=== PATIENT | female | born 1985 | race American Indian/Alaskan Native ===

== ENCOUNTER 2024-10-15 22:01 | Emergency (ER) | payer MEDICAID, SELFPAY ==
[2024-10-15 22:02] VITALS: BMI 32.0
--- NOTE | 2024-10-15 22:14 | PC.NURSE ---
not able to get an initial set of vitals due to the pt behavior.
--- NOTE | 2024-10-15 22:50 | PD.EDRME ---
Rapid Medical Screening Exam RME Arrival date/time: 10/15/24 22:01 39-year-old disheveled female with friend at bedside presents emergency department complaining of lacerations to right arm and lower lip from dog bite. Chief Complaint: Animal Bite Time Seen by Provider: 10/15/24 22:30 Vital signs: Vital Signs Temperature 97.3 F 10/15/24 22:56 Pulse Rate 98 10/15/24 22:56 Respiratory Rate 22 H 10/15/24 22:56 Blood Pressure 152/90 H 10/15/24 22:56 Pulse Oximetry (%) 99 10/15/24 22:56 Oxygen Delivery Method Room Air 10/15/24 22:56 Vital signs reviewed by provider: Yes
[2024-10-15 22:56] VITALS: BP 152/90; PULSE 98; RESP 22; TEMP 36.3; O2SAT 99
[2024-10-15] MEDS: LORazepam 2 MG/ML VIAL IM (23:21)
[2024-10-15] MEDS: LIDOCAINE HCL 1% 20 ML VIAL INFL (23:22)
--- NOTE | 2024-10-16 00:18 | EDNOTE_ITS ---
ED Animal Bite RME/HPI General Chief Complaint: Animal Bite Stated Complaint: ATTACKED BY DOG/INTOXICATED Time Seen by Provider: 10/15/24 22:30 Arrival date/time: 10/15/24 22:01 RME / HPI RME / HPI narrative: 10/15/24 22:01 39-year-old disheveled female with friend at bedside presents emergency department complaining of lacerations to right arm and lower lip from dog bite. DR. SCHULZ MAIN ED EVALUATION: 39-year-old female patient brought in by private vehicle for alcohol intoxication and dog bite, lower lip and right arm. Per patient's daughter at bedside the patient went to her boyfriend's house intoxicated. Her boyfriend was not at home. She broke into the property unannounced and his dogs bit her. Related Data Home Medications ?Medication ?Instructions ?Recorded ?Confirmed Unobtainable 10/16/24 10/16/24 Allergies Allergy/AdvReac Type Severity Reaction Status Date / Time No Known Allergies Allergy Verified 05/19/21 22:19 Review of Systems Review of Systems Systems Reviewed: All systems reviewed, normal except as documented Narrative Review of Systems: GEN: No fever, no chills, no weight loss EYES: No discharge, no visual changes, no pain HEENT: No ear pain, no congestion, no sore throat PULM: No shortness of breath, no cough, no congestion CV: No chest pain, no dyspnea on exertion, no palpitations GI: No nausea, no vomiting, no diarrhea, no pain, no constipation : No frequency, no urgency and no dysuria MUSC/SKEL: No joint pain, no back pain SKIN: No rash. + lower lip and right arm bite from dog (see HPI) PSYCH: No hallucinations, no depression HEME/LYMPH: No easy bleeding or bruising tendencies NEURO: No weakness, no headache Past Medical History Social History SMOKING STATUS: Never smoker SUBSTANCE USE: does not use ALCOHOL: Never ED Exam Narrative Physical exam: GENERAL APPEARANCE: alert and oriented x 4, well-developed, well-nourished, no acute distress VITALS: All vitals were reviewed and the pulse ox is 97% on room air, which is normal according to my interpretation. HEENT: Normocephalic, atraumatic; pupils equal, round, reactive to light; EOMI; mucous membranes pink, moist; oropharynx clear NECK: Supple LUNGS: CTABL; no wheezes, no rales, no rhonchi HEART: Regular rate, regular rhythm; normal S1, S2; no murmurs ABDOMEN: non distended; normal BS; soft, no tenderness, no guarding, no rebound; no masses, no organomegaly, no hernia BACK: no CVA tenderness EXTREMITIES: atraumatic; no edema NEUROLOGIC: awake; alert and oriented x4; cranial nerves II-XII grossly intact; no focal sensory or motor deficits PSYCHIATRIC: appropriate mood and affect SKIN: warm, dry, normal color; no rashes Course Quality Measures none Orders Category Date Time Status Set Up Suture Tray STAT Care 10/15/24 23:06 Completed Wound Care [Wound Care] NOW Care 10/15/24 23:06 Completed Alcohol, Blood Medical Stat Lab 10/15/24 22:48 Completed Ampicillin/Sulbac Inj [Unasyn Inj] Med 10/16/24 01:20 Discontinued 1.5 gm IM X1 ONE LORazepam [Ativan Inj] Med 10/15/24 23:11 Discontinued 2 mg IM X1 ONE Lidocaine 1% 20 ml [Xylocaine 1% 20 ML] Med 10/16/24 01:21 Discontinued 10 ml INFL X1 ONE Lidocaine 1% 20 ml [Xylocaine 1% 20 ML] Med 10/15/24 23:06 Discontinued 20 ml INFL X1 ONE Sterile Water Med 10/16/24 01:33 Discontinued 3.5 ml IM X1 ONE Tet,Diphth,Pertuss(Acell)-Tdap [Boostrix Vacc] Med 10/16/24 01:20 Discontinued 0.5 ml IMI .ONCE ONE Reevaluation(s) Reevaluation #1: Patient remains clinically stable throughout the emergency department visit. Re- assessment at the time of disposition demonstrates that the patient is in no acute distress. We reviewed all the results, analysis, and treatment plans. Patient is amenable to discharge. Strict return precautions were outlined. Patient was discharged in stable condition. Time: 03:45 Vital Signs Vital signs: Vital Signs Temperature 97.3 F 10/15/24 22:56 Pulse Rate 98 10/15/24 22:56 Respiratory Rate 22 H 10/15/24 22:56 Blood Pressure 152/90 H 10/15/24 22:56 Pulse Oximetry (%) 99 10/15/24 22:56 Oxygen Delivery Method Room Air 12/13/24 22:56 Animal Bite MDM Narrative MDM Narrative:: IEnriqueta am scribing for and in the presence of Dr. Schulz. Patient data External records reviewed:: [facility] previous records (Reviewed last ED visit dated 07/03/24, discharged with the following: Headache.) Clinical information provided by:: patient Social determinants that could affect healthcare access:: none Patient has the following chronic illnesses:: Denies any PMHx, surgeries, daily medications, or known allergies. How is presenting disease/condition affected by chronic disease/condition?: no chronic disease Evaluation data The following diagnostics were reviewed and interpreted by me:: lab results Lab and/or radiology exams considered but not ordered:: none Interpretation Summary: ETOH level was 212.5. Medications / Prescriptions Medications or Prescriptions considered but not ordered:: none Medication administrations:: Medication Administration History Discontinued Medications Ampicillin Sodium/Sulbactam Sodium (Ampicillin/Sulbac Inj 1.5 Gm Vial) 1.5 gm IM X1 ONE Stop: 10/16/24 01:21 Last Admin: 10/16/24 01:38 Dose: 1.5 gm Documented By: CVL Diphtheria/Tetanus/Acell Pertussis (Diphth,Pertuss(Acell),Tet Vac 0.5 Ml Vial) 0.5 ml IMi .ONCE ONE Stop: 10/16/24 01:21 Last Admin: 10/16/24 01:29 Dose: 0.5 ml Documented By: CVL Lidocaine HCl (Lidocaine Hcl 1% 20 Ml Vial) 20 ml INFL X1 ONE Stop: 10/15/24 23:07 Last Admin: 10/15/24 23:22 Dose: 20 ml Documented By: Lidocaine HCl (Lidocaine Hcl 1% 20 Ml Vial) 10 ml INFL X1 ONE Stop: 10/16/24 01:22 Last Admin: 10/16/24 04:00 Dose: 10 ml Documented By: CVL Comments: used by dr. SCHULZ Lorazepam (Lorazepam 2 Mg/Ml Vial) 2 mg IM X1 ONE Stop: 10/15/24 23:12 Last Admin: 10/15/24 23:21 Dose: 2 mg Documented By: Sterile Water (Water, Sterile Inj 10 Ml Vial) 3.5 ml IM X1 ONE Stop: 10/16/24 01:34 Last Admin: 10/16/24 01:38 Dose: 3.5 ml Documented By: CVL see above Consultations Consultation(s) initiated? (list below): No Diagnosis Differential diagnosis animal bite: bite by animal, dog bite and rabies contact Most likely diagnosis given after review of the tests above:: Dog bite Complicated laceration of lip Puncture wound of cheek Puncture wound of hand Admission Indicated Admission indicated?: not indicated Admission Request Was there a request for admission?: No Disposition Plan Disposition Plan: Discharge Discharge Attestation Discharge Attestation: The patient and all family members were given an opportunity to ask questions and understood the discharge instructions. Discharge instructions specifically effects, indications for sooner follow up or return to the emergency department, and the expected course of current diagnosis. Patient condition: Stable Discharge Plan Plan Patient Disposition: HOME (Self Care) Prescriptions/Referrals Prescriptions/Med Rec: No Action Unobtainable Problem List Clinical Impression: Dog bite, Complicated laceration of lip, Puncture wound of cheek, Puncture wound of hand Patient/Caregiver Discharge Instructions Education Materials: ED Dog Bite, ED Laceration, Face: Stitches or Tape, ED Laceration, Lip or Mouth, ED Puncture Wound (General) Additional Instructions: Dog bites have high risk of infection. For that reason, your lip was loosely stitched and the other wounds on your hands were not stitched closed. Follow up with your doctor daily for recheck of wounds. Return immediately for any signs or symptoms of infection or other concerns. Print Language: [place] Stand Alone Forms: Mary Award Info., Patient Portal Info Letter
[2024-10-16] MEDS: DIPHTH,PERTUSS(ACELL),TET VAC 0.5 ML VIAL IMi (01:29)
[2024-10-16 01:35] VITALS: BP 117/85; PULSE 80; RESP 15; TEMP 36.5; O2SAT 97
[2024-10-16] MEDS: WATER, STERILE INJ 10 ML VIAL 3.5 ML IM (01:38)
[2024-10-16] MEDS: AMPICILLIN IM (01:38)
[2024-10-16] MEDS: SULBAC IM (01:38)
[2024-10-16 02:06] LABS: Alcohol, Blood Medical 212.5 mg/dL (0-10.0)
[2024-10-16] MEDS: LIDOCAINE HCL 1% 20 ML VIAL 10 ML INFL (04:00)
[2024-10-16 04:02] VITALS: RESP 18
== END 2024-10-16 04:02 | disposition home or self-care (01) ==
LOC: SERX 10-16 05:08
PROVIDERS: Emergency Provider Emergency Medicine; PCP Family Medicine
DX: S01.511A Laceration without foreign body of lip, initial encounter (principal); S01.439A Puncture wound without foreign body of unspecified cheek and temporomandibular area, initial encounter; S61.431A Puncture wound without foreign body of right hand, initial encounter; W54.0XXA Bitten by dog, initial encounter; Z23 Encounter for immunization
CPT/HCPCS: 36415; 80307; 80320; 90471; 90715; 99283; A4216; J0295; J2060; J3490; G0480